=== PATIENT | female | born 1960 | race Caucasian/White ===

== ENCOUNTER 2022-04-09 07:54 | Outpatient (CLI) | payer OTHER, SELFPAY ==
--- NOTE | 2022-04-09 08:15 | CRLHL7_ITS ---
For Patients: As a result of the Cures Act, medical imaging exams and procedure reports are released immediately into your electronic medical record. You may view this report before your referring provider. If you have questions, please contact your health care provider. INDICATION: Pain TECHNIQUE: 3-view lumbar spine. COMPARISON: none FINDINGS: Transitional lumbosacral anatomy noted. No fracture. Mild discogenic spurring mid lumbar spine. Disc space narrowing lower lumbar spine. Facet degeneration lower lumbar spine. Leftward curvature mid lumbar spine. SI joints normal. No pars defect or spondylolisthesis. No vertebral body compression fracture. No paraspinal soft tissue mass. IMPRESSION: Multilevel degenerative disc disease lumbar spine. Facet degeneration lower lumbar spine. Dictated by Mariusz Garcia MD @ 04/09/2022 8:55:46 AM (Electronically Signed)
--- NOTE | 2022-04-09 08:29 | CRLHL7_ITS ---
For Patients: As a result of the Cures Act, medical imaging exams and procedure reports are released immediately into your electronic medical record. You may view this report before your referring provider. If you have questions, please contact your health care provider. Indication: Pain Technique: AP pelvis and two views each hip, five views total Comparison: None Findings: The hip joints are maintained bilaterally. No CAM impingement or pincer type impingement deformity. No osteonecrosis or intrinsic lesion. Intact pubic rami and sacrum. Impression: Normal hip films. Dictated by Mariusz Garcia MD @ 04/09/2022 8:56:59 AM (Electronically Signed)
--- NOTE | 2022-04-09 08:30 | CRLHL7_ITS ---
For Patients: As a result of the Cures Act, medical imaging exams and procedure reports are released immediately into your electronic medical record. You may view this report before your referring provider. If you have questions, please contact your health care provider. Indication: Pain Technique: Three views sacrum and coccyx Comparison: None Findings: Normal sacrococcygeal alignment. SI joints maintained. Normal symphysis pubis. Normal hip joints. No fracture. Lumbar spine findings will be dictated in the lumbar spine report. Impression: Unremarkable sacrum and coccyx radiographs. Dictated by Mariusz Garcia MD @ 04/09/2022 8:54:09 AM (Electronically Signed)
== END 2022-04-09 07:55 | disposition home or self-care (01) ==
LOC: RAD 07:56
PROVIDERS: PCP Family Medicine; Visit Provider Chiropractor
DX: M54.50 Low back pain, unspecified (principal); M51.36 Other intervertebral disc degeneration, lumbar region; M54.16 Radiculopathy, lumbar region; M54.17 Radiculopathy, lumbosacral region; M25.551 Pain in right hip; M25.552 Pain in left hip
CPT/HCPCS: 72100; 72220; 73521

== ENCOUNTER 2022-08-20 07:40 | Day surgery (SDC) | payer OTHER, SELFPAY ==
[2022-08-19] MEDS: LACTATED RINGERS 1000 ML 1,000 ML 100 ML IV (08:30)
--- NOTE | 2022-08-20 07:57 | SUR.PREOP ---
home covid test negative.
[2022-08-20] MEDS: SODIUM CHLORIDE 0.9 % (FLUSH) 10 ML SYRINGE IVF (08:00)
[2022-08-20 08:18] VITALS: BP 126/86; PULSE 66; RESP 16; TEMP 36.3; O2SAT 100
[2022-08-20 08:25] VITALS: BMI 22.6
--- NOTE | 2022-08-20 08:30 | SUR.PREOP ---
home covid negative
[2022-08-20] MEDS: BUPIVACAINE 0.5 %/EPI 1:200K 2 ML INJECTION (09:08)
[2022-08-20] MEDS: TETRACAINE 0.5% OPHTH 2 DROP EYE-BOTH (09:08)
[2022-08-20 10:16] VITALS: BP 146/100; PULSE 60; RESP 16; TEMP 36.2; O2SAT 98
[2022-08-20 10:30] VITALS: BP 149/98; PULSE 58; RESP 16; O2SAT 98
--- NOTE | 2022-08-20 10:36 | W.PM.OPTPROC ---
Procedure Note Date of procedure: 08/20/22 Will [facility] bill your pro fee for this procedure?: Yes Procedure Description: SURGEON: Shy James MD PREOPERATIVE DIAGNOSIS: Dermatochalasis, bilateral upper eyelids. POSTOPERATIVE DIAGNOSIS: Dermatochalasis, bilateral upper eyelids. NAME OF OPERATION: Bilateral upper eyelid blepharoplasty. ANESTHESIA: Local monitored anesthesia care. ESTIMATED BLOOD LOSS: Less than 2 cc. COMPLICATIONS: None. IMPLANTS: None. INDICATIONS: The patient is seen today for bilateral upper eyelid blepharoplasty. The patient complains of upper eyelids interfering with vision. I reviewed the visual loja and facial photographs. Surgery was indicated for functional improvement of vision. The risks, benefits and alternatives were discussed pre-operatively. The risks included pain, infection, bleeding, poor cosmetic result, scarring, asymmetry, need for further treatment including surgery, inability to close lids, dry eyes, decreased vision, loss of vision and loss of eye. The benefits included improvement of symptoms. The alternative was observation and no surgery. All questions were answered to the patient's satisfaction, and the patient elected to proceed with the bilateral upper eyelid blepharoplasty. Informed consent was obtained. PROCEDURE: In a sitting position, the upper eyelid crease was marked with a marking pen, and the pinch technique was used to determine the amount of upper eyelid skin to be excised. A calipers was used to measure for symmetry and to confirm an appropriate amount of remaining skin. The patient was taken to the operating room. 4 cc of anesthetic was injected subcutaneously along the full extent of each upper eyelid. This anesthetic was made with 1:1 of 2% lidocaine with epinephrine and 0.5% bupivacaine. Both eyes were prepped and draped in the usual sterile ophthalmic fashion. The following was performed on both the right and left upper eyelid: A #15 blade was used to incise the skin. Bishops and Samuel scissors were used to excise the skin and orbicularis muscle. Handheld cautery was used to achieve hemostasis. The eyelids were examined for symmetry. The skin was closed with a running 6-0 nylon suture. Erythromycin ointment was applied to the wounds. The patient tolerated the procedure well. DISPOSITION: The patient was sent to the recovery room and discharged to home in stable condition. The patient was given my postoperative instructions handout. The patient was told to ice as directed. The patient will apply erythromycin ophthalmic ointment to the eyelids three times a day until the sutures are removed, then for another three days. The patient will follow up in one week for suture removal or sooner as needed. The patient was instructed to call me or go to the emergency department with any sudden change, including dramatic loss of vision, excessive bleeding, redness or discharge from the incisions, or severe pain in the eye. Surgeon: Shy James MD
[2022-08-20 10:45] VITALS: BP 129/97; PULSE 60; RESP 16; O2SAT 99
--- NOTE | 2022-08-20 11:07 | W.ANESCHARGE ---
Anesthesia Charges Start Date/Time Anesthesia Start Date: 08/20/22 Anesthesia Start Time: 09:04 Stop Date/Time Anesthesia Stop Date: 08/20/22 Anesthesia Stop Time: 10:16 Summary Emergency: No
--- NOTE | 2022-08-20 12:01 | W.ANESCHARGE ---
Anesthesia Charges Start Date/Time Anesthesia Start Date: 08/20/22 Anesthesia Start Time: 09:04 Stop Date/Time Anesthesia Stop Date: 08/20/22 Anesthesia Stop Time: 10:16 Summary Emergency: No
== END 2022-08-20 11:08 | disposition home or self-care (01) ==
PROVIDERS: PCP Family Medicine; Visit Provider Ophthalmology
PROC: (CPT 15823; principal; 2022-08-20 07:45)
DX: H02.834 Dermatochalasis of left upper eyelid (principal); H02.831 Dermatochalasis of right upper eyelid; H53.9 Unspecified visual disturbance
CPT/HCPCS: 15823; 00103; A9270; J2704; J3490; J7120

== ENCOUNTER 2024-12-08 08:15 | Outpatient (RCR) | payer BC, SELFPAY | END 2025-04-07 23:59 | disposition home or self-care (01) | PROVIDERS: PCP Family Medicine; Visit Provider Family Medicine | DX: N81.6 Rectocele (principal); N32.81 Overactive bladder; K64.9 Unspecified hemorrhoids; N39.41 Urge incontinence; R27.8 Other lack of coordination; Z51.89 Encounter for other specified aftercare | CPT/HCPCS: 97110; 97140; 97162; 97535 ==